=== PATIENT | female | born 1995 | race Caucasian/White ===

== ENCOUNTER 2018-05-03 14:05 | Emergency (ER) | payer MEDICAID ==
[~2018-05-03] VITALS: Ht 154.9 cm; Wt 63.5 kg
[2018-05-03] MEDS ORDERED: SODIUM CHLORIDE 0.9% 1,000 ML IV ONE (14:25)
[2018-05-03] MEDS ORDERED: ONDANSETRON HCL 4 MG/2 ML VIAL IV ONE (14:30)
[2018-05-03] MEDS ORDERED: MORPHINE SULFATE 4 MG/ML SYR/VIAL IV ONE (14:30)
[2018-05-03 14:45] LABS: Basophils # (auto) 0 uL; Basophils % (auto) 0.5 % (0.0-2.0); Eosinophils # (auto) 0.1 uL; Eosinophils % (auto) 1.5 % (0.0-7.0); Hemoglobin 13.7 g/dL (12.2-16.2); Lymphocytes # (auto) 1.6 uL; Lymphocytes % (auto) 26.1 % (10.0-50.0); Mean Corpuscular Hemoglobin 27.8 pg (28.0-32.0); Mean Corpuscular Hgb Conc. 32.6 g/dL (32.0-36.0); Mean Corpuscular Volume 85.1 fL (80.0-100.0); Monocytes # (auto) 0.4 uL; Monocytes % (auto) 6.6 % (0.0-12.0); Neutrophils # (auto) 3.9 uL; Neutrophils % (auto) 65.3 % (37.0-80.0); Nucleated Red Blood Cells % 0.1 %; Platelet Count (auto) 191 10^3/uL (140-450); Red Blood Cells 4.94 10^6/uL (4.0-5.20); Red Cell Distribution Width 13.3 % (11.8-14.3)
[2018-05-03 14:59] LABS: Calcium 8.7 mg/dL (8.5-10.1); Magnesium 2.2 mg/dL (1.6-2.6); Potassium 3.7 mmol/L (3.5-5.1)
[2018-05-03 15:03] LABS: Bilirubin, Total 0.3 mg/dL (0.2-1.0); Total Protein 7.7 g/dL (6.4-8.2)
[2018-05-03 17:30] VITALS: BP 109/63
== END 2018-05-03 19:13 | disposition home or self-care (01) ==
LOC: ER 14:05
DX: K80.80 Other cholelithiasis without obstruction (principal); Z88.8 Allergy status to other drugs, medicaments and biological substances; Z88.5 Allergy status to narcotic agent; Z90.49 Acquired absence of other specified parts of digestive tract
CPT/HCPCS: 36415; 76705; 80053; 82150; 83690; 83735; 85025; 96374; 99284; J2270; J2405; J7030

== ENCOUNTER 2019-12-29 15:09 | Emergency (ER) | payer MEDICAID ==
[~2019-12-29] VITALS: Ht 152.4 cm; Wt 60.3 kg
[2019-12-29 16:38] LABS: Urine Bacteria MOD /hpf (None Seen); Urine Blood 3+ /uL (Negative); Urine Mucus FEW (None Seen); Urine WBC 2512 /hpf (0 - 5)
[2019-12-29 16:47] LABS: Urine Specific Gravity 1.032 (1.001-1.035)
[2019-12-29 22:08] VITALS: BP 108/78
== END 2019-12-29 22:11 | disposition home or self-care (01) ==
LOC: ER 15:09
DX: O23.42 Unspecified infection of urinary tract in pregnancy, second trimester (principal); Z90.49 Acquired absence of other specified parts of digestive tract; Z3A.15 15 weeks gestation of pregnancy
CPT/HCPCS: 36415; 76805; 81001; 84702

== ENCOUNTER 2020-03-17 13:51 | Observation (INO) | payer MEDICAID ==
[~2020-03-17] VITALS: Ht 152.4 cm; Wt 64.4 kg
[2020-03-17] MEDS ORDERED: PREN-96 PO (14:13)
[2020-03-17] MEDS ORDERED: TERBUTALINE SULFATE 1 MG/ML 1ML VIAL SC SCH (14:30)
== END 2020-03-17 15:30 | disposition home or self-care (01) ==
LOC: LDRP 13:51
PROVIDERS: ADMIT Obstetrics & Gynecology; ATTEND Obstetrics & Gynecology
DX: O62.9 Abnormality of forces of labor, unspecified (principal); Z3A.25 25 weeks gestation of pregnancy
CPT/HCPCS: 59025; 76805; 81002; 96372; G0378; J3105

== ENCOUNTER 2020-04-30 10:25 | Observation (INO) | payer MEDICAID ==
[~2020-04-30 10:25] MED LIST: PREN-96 PO
[2020-04-30] MEDS ORDERED: CITALOPRAM HYDROBR 20 MG TAB PO ONE (14:00)
[2020-04-30] MEDS ORDERED: CITA-30 PO (14:19)
== END 2020-04-30 15:41 | disposition home or self-care (01) ==
LOC: LDRP 10:25
PROVIDERS: ADMIT Obstetrics & Gynecology; ATTEND Obstetrics & Gynecology
DX: O24.419 Gestational diabetes mellitus in pregnancy, unspecified control (principal); O26.893 Other specified pregnancy related conditions, third trimester; K50.90 Crohn's disease, unspecified, without complications; R45.851 Suicidal ideations; R51.9 Headache, unspecified; H53.8 Other visual disturbances; O62.9 Abnormality of forces of labor, unspecified; Z3A.31 31 weeks gestation of pregnancy
CPT/HCPCS: 59025; 76818; 81002; 82962; G0378

== ENCOUNTER 2020-05-04 10:55 | Observation (INO) | payer MEDICAID ==
[~2020-05-04] VITALS: Ht 152.4 cm; Wt 66.7 kg
[~2020-05-04 10:55] MED LIST changes: +CITA-30 PO
[2020-05-04] MEDS ORDERED: TERBUTALINE SULFATE 1 MG/ML 1ML VIAL SC ONE (11:25)
[2020-05-04] MEDS ORDERED: LACTATED RINGER'S 1,000 ML IV ONE (11:30)
[2020-05-04] MEDS: TERBUTALINE SULFATE 1 MG/ML 1ML VIAL SC SCH ×2 (11:51→12:11)
[2020-05-04] MEDS ORDERED: BETAMETHASONE ACET (6MG/ML) 5ML VIAL IM SCH (13:15)
[2020-05-04 13:39] LABS: Basophils # (auto) 0 10 ^3/uL (0-0.2); Basophils % (auto) 0.1 % (0.0-2.0); Eosinophils # (auto) 0 10 ^3/uL (0-0.8); Eosinophils % (auto) 0.2 % (0.0-7.0); Hematocrit 31.5 % (36.0-46.0); Hemoglobin 10.6 g/dL (12.2-16.2); Lymphocytes # (auto) 0.7 10 ^3/uL (0.4-5.4); Lymphocytes % (auto) 10.9 % (10.0-50.0); Mean Corpuscular Hemoglobin 28.6 pg (28.0-32.0); Mean Corpuscular Hgb Conc. 33.7 g/dL (32.0-36.0); Mean Corpuscular Volume 84.9 fL (80.0-100.0); Monocytes # (auto) 0.4 10 ^3/uL (0-1.3); Monocytes % (auto) 6.6 % (0.0-12.0); Neutrophils # (auto) 5.3 10 ^3/uL (1.6-8.6); Neutrophils % (auto) 82.2 % (37.0-80.0); Nucleated Red Blood Cells % 0.1 %; Platelet Count (auto) 145 10^3/uL (140-450); Red Blood Cells 3.71 10^6/uL (4.0-5.20); Red Cell Distribution Width 12.9 % (11.8-14.3); White Blood Cell 6.5 10^3/uL (4.4-10.8)
[2020-05-04 13:56] LABS: Albumin 2.6 g/dL (3.4-5.0); Calcium 7.7 mg/dL (8.5-10.1)
[2020-05-04 13:59] LABS: BUN/Creatinine Ratio 6.6; Bilirubin, Total 0.3 mg/dL (0.2-1.0); Total Protein 6.3 g/dL (6.4-8.2)
[2020-05-04 14:06] LABS: Potassium 2.7 mmol/L (3.5-5.1)
[2020-05-04] MEDS ORDERED: POTASSIUM CHL 20 Meq TABLET PO ONE (14:15)
[2020-05-04 15:24] LABS: Alcohol, Urine < 3.0 mg/dL (0-10); Amphetamine Screen, Urine NEGATIVE (NEGATIVE); Barbiturate Scree,Urine NEGATIVE (NEGATIVE); Benzodiazephine Screen, Urine NEGATIVE (NEGATIVE); Cannabinoid Screen, Urine NEGATIVE (NEGATIVE); Cocaine Screen, Urine NEGATIVE (NEGATIVE); Opiate Scree,Urine NEGATIVE (NEGATIVE); Phencyclidine Screen, Urine NEGATIVE (NEGATIVE)
[2020-05-05] MEDS ORDERED: NIF10C GT ×2 (13:40)
== END 2020-05-04 14:30 | disposition home or self-care (01) ==
LOC: LDRP 10:55
PROVIDERS: ADMIT Obstetrics & Gynecology; ATTEND Obstetrics & Gynecology
DX: O60.03 Preterm labor without delivery, third trimester (principal); O24.419 Gestational diabetes mellitus in pregnancy, unspecified control; O26.893 Other specified pregnancy related conditions, third trimester; N89.8 Other specified noninflammatory disorders of vagina; Z3A.32 32 weeks gestation of pregnancy; Z79.899 Other long term (current) drug therapy
CPT/HCPCS: 36415; 59025; 76805; 76817; 80053; 80307; 81002; 82962; 85025; 96360; 96372; G0378; J0702; J3105

== ENCOUNTER 2020-05-05 12:22 | Observation (INO) | payer MEDICAID ==
[~2020-05-05] VITALS: Ht 152.4 cm; Wt 66.7 kg
[2020-05-05] MEDS ORDERED: BETAMETHASONE ACET (6MG/ML) 5ML VIAL IM ONE (12:45)
[2020-05-05] MEDS ORDERED: POTASSIUM CHL 20 Meq TABLET PO ONE (12:45)
[2020-05-05] MEDS ORDERED: NIF10C GT ×2 (13:40)
== END 2020-05-05 14:02 | disposition home or self-care (01) ==
LOC: LDRP 12:22
PROVIDERS: ADMIT Specialist; ATTEND Specialist
DX: O60.03 Preterm labor without delivery, third trimester (principal); O24.419 Gestational diabetes mellitus in pregnancy, unspecified control; O26.893 Other specified pregnancy related conditions, third trimester; E87.6 Hypokalemia; O26.853 Spotting complicating pregnancy, third trimester; Z3A.32 32 weeks gestation of pregnancy
CPT/HCPCS: 36415; 59025; 81002; 82948; 82962; 84132; 96372; G0378; J0702

== ENCOUNTER 2020-06-07 20:50 | Inpatient (IN) | payer MEDICAID ==
[~2020-06-07] VITALS: Ht 152.4 cm; Wt 68.0 kg
[~2020-06-07 20:50] MED LIST changes: -CITA-30 PO; +CITA20TA9 PO; +NIF10C GT
[2020-06-07] MEDS ORDERED: LACTATED RINGER'S 1,000 ML IV SCH (22:15)
[2020-06-07] MEDS ORDERED: BUTORPHANOL TARTRATE 2 MG/1 ML VIAL IM ONE (22:15)
[2020-06-07 22:23] LABS: Urine Bacteria MOD /hpf (None Seen); Urine Blood Negative /uL (Negative); Urine Specific Gravity 1.012 (1.001-1.035); Urine WBC 6 /hpf (0 - 5)
[2020-06-07 22:39] LABS: Alcohol, Urine < 3.0 mg/dL (0-10); Amphetamine Screen, Urine NEGATIVE (NEGATIVE); Benzodiazephine Screen, Urine NEGATIVE (NEGATIVE); Cannabinoid Screen, Urine NEGATIVE (NEGATIVE); Cocaine Screen, Urine NEGATIVE (NEGATIVE); Opiate Scree,Urine NEGATIVE (NEGATIVE); Phencyclidine Screen, Urine NEGATIVE (NEGATIVE)
[2020-06-07 22:43] LABS: Barbiturate Scree,Urine NEGATIVE (NEGATIVE)
[2020-06-07] MEDS ORDERED: TERBUTALINE SULFATE 1 MG/ML 1ML VIAL SC SCH (23:20)
[2020-06-07] MEDS ORDERED: TERBUTALINE SULFATE 1 MG/ML 1ML VIAL SC ONE (23:22)
[2020-06-07] MEDS ORDERED: ceFAZolin 1GM/50ML 50 ML IV ONE (23:30)
[2020-06-07] MEDS ORDERED: LACTATED RINGER'S 1,000 ML IV ONE (23:30)
[2020-06-07] MEDS ORDERED: SODIUM CITR/CITRIC ACID ORAL SOLN 30 ML PO ONE (23:30)
[2020-06-07 23:58] LABS: Basophils # (auto) 0 10 ^3/uL (0-0.2); Basophils % (auto) 0.3 % (0.0-2.0); Eosinophils # (auto) 0 10 ^3/uL (0-0.8); Eosinophils % (auto) 0.4 % (0.0-7.0); Lymphocytes # (auto) 1.9 10 ^3/uL (0.4-5.4); Lymphocytes % (auto) 24.6 % (10.0-50.0); Mean Corpuscular Hemoglobin 27.7 pg (28.0-32.0); Mean Corpuscular Hgb Conc. 33.5 g/dL (32.0-36.0); Mean Corpuscular Volume 82.7 fL (80.0-100.0); Monocytes # (auto) 0.4 10 ^3/uL (0-1.3); Monocytes % (auto) 5.6 % (0.0-12.0); Neutrophils # (auto) 5.2 10 ^3/uL (1.6-8.6); Neutrophils % (auto) 69.1 % (37.0-80.0); Platelet Count (auto) 167 10^3/uL (140-450); Red Blood Cells 3.99 10^6/uL (4.0-5.20); Red Cell Distribution Width 14.2 % (11.8-14.3); White Blood Cell 7.5 10^3/uL (4.4-10.8)
[2020-06-08] VITALS (12 sets, daily range): BP systolic 90–125; BP diastolic 49–77
[2020-06-08] MEDS ORDERED: TETRACAINE 1% INJ 2 ML VIAL IJ ONE (00:11)
[2020-06-08] MEDS ORDERED: fentaNYL CITRATE 100 MCG/2 ML VL ONE (00:14)
[2020-06-08] MEDS ORDERED: MIDAZOLAM HCL 1MG/1ML-2 ML VIAL ONE (00:14)
[2020-06-08] MEDS ORDERED: MEPERIDINE HCL (25 MG/ML) 1ML VIAL ONE (00:14)
[2020-06-08] MEDS ORDERED: ROCURONIUM 10MG/ML 10ML VIAL IV ONE (00:15)
[2020-06-08] MEDS ORDERED: SODIUM CHLORIDE LOCK 10 ML ONE (00:15)
[2020-06-08 00:16] LABS: INR 0.97 (0.9-1.15); Partial Thromboplastin Time 25.1 sec (23.0-31.2)
[2020-06-08 00:25] LABS: Albumin 2.8 g/dL (3.4-5.0); BUN/Creatinine Ratio 10.2; Calcium 8.2 mg/dL (8.5-10.1); Potassium 3.3 mmol/L (3.5-5.1)
[2020-06-08] MEDS ORDERED: oxyTOCIN 10 UNIT/ML 10ML VIAL ONE (00:26)
[2020-06-08] MEDS ORDERED: GLYCOPYRROLATE 0.2 MG/ML 1ML VIAL ONE (00:28)
[2020-06-08] MEDS ORDERED: NEOSTIGMINE 1 MG/ML INJ (10mg/10ML VIAL) ONE (00:28)
[2020-06-08 00:29] LABS: Bilirubin, Total 0.4 mg/dL (0.2-1.0); Total Protein 6.6 g/dL (6.4-8.2)
[2020-06-08] MEDS ORDERED: ONDANSETRON HCL 4 MG/2 ML VIAL ONE (00:51)
[2020-06-08] MEDS ORDERED: ACETAMINOPHEN IV 1000 MG/100ML (10MG/ML) IV PRN (01:30)
[2020-06-08] MEDS ORDERED: ONDANSETRON HCL 4 MG/2 ML VIAL IV PRN ×2 (01:30→01:45)
[2020-06-08] MEDS ORDERED: GUM (CHEWING) 1 GUM CHEW CHEW ONE (01:30)
[2020-06-08] MEDS: HYDROmorphone HCL 2 MG/ML VL ONE ×2 (01:35→01:45)
[2020-06-08] MEDS ORDERED: HYDROmorphone HCL 2 MG/ML VL IV PRN (01:45)
[2020-06-08] MEDS: KETOROLAC TROMETH 30 MG/ML 1ML VIAL IV PRN ×3 (03:04→16:09)
[2020-06-08] MEDS: LACTATED RINGER'S 1,000 ML IV SCH ×4 (04:40→23:17)
[2020-06-08] MEDS ORDERED: INFLUENZA QUAD 2020-2021 0.5 ML SYRG IM ONE (05:30)
[2020-06-08] MEDS: HYDROmorphone HCL 2 MG/ML VL IV PRN ×4 (06:18→22:15)
[2020-06-08] MEDS: ceFAZolin 1GM/50ML 50 ML IV SCH ×2 (08:33→16:09)
[2020-06-08] MEDS: CITALOPRAM HYDROBR 20 MG TAB PO SCH (10:01)
[2020-06-08] MEDS ORDERED: POTASSIUM CHL 20 Meq TABLET PO ONE (16:00)
[2020-06-09] MEDS: ceFAZolin 1GM/50ML 50 ML IV SCH (00:21)
[2020-06-09] MEDS: HYDROmorphone HCL 2 MG/ML VL IV PRN (02:27)
[2020-06-09 02:53] VITALS: BP 98/58
[2020-06-09 06:06] LABS: RPR Non Reactive (Non Reactive)
[2020-06-09 07:20] VITALS: BP 86/48
[2020-06-09] MEDS ORDERED: HYDROcodone-ACET 5/325MG TAB PO PRN (07:45)
[2020-06-09] MEDS: HYDROcodone-ACET 5/325MG TAB PO PRN ×2 (08:06→18:52)
[2020-06-09] MEDS: DOCUSATE SOD 100 MG CAP PO SCH ×2 (08:07→21:45)
[2020-06-09] MEDS: SIMETHICONE 80 MG CHEWABLE TABLET PO PRN ×3 (08:07→21:45)
[2020-06-09 11:15] VITALS: BP 98/59
[2020-06-09 11:44] LABS: Basophils # (auto) 0 10 ^3/uL (0-0.2); Basophils % (auto) 0.2 % (0.0-2.0); Eosinophils # (auto) 0 10 ^3/uL (0-0.8); Eosinophils % (auto) 0.4 % (0.0-7.0); Hematocrit 27.6 % (36.0-46.0); Hemoglobin 9.1 g/dL (12.2-16.2); Lymphocytes # (auto) 1.7 10 ^3/uL (0.4-5.4); Lymphocytes % (auto) 22.1 % (10.0-50.0); Mean Corpuscular Hemoglobin 27.4 pg (28.0-32.0); Mean Corpuscular Hgb Conc. 33.1 g/dL (32.0-36.0); Mean Corpuscular Volume 82.8 fL (80.0-100.0); Monocytes # (auto) 0.7 10 ^3/uL (0-1.3); Monocytes % (auto) 8.6 % (0.0-12.0); Neutrophils # (auto) 5.2 10 ^3/uL (1.6-8.6); Neutrophils % (auto) 68.7 % (37.0-80.0); Nucleated Red Blood Cells % 0.1 %; Platelet Count (auto) 170 10^3/uL (140-450); Red Blood Cells 3.33 10^6/uL (4.0-5.20); Red Cell Distribution Width 14.1 % (11.8-14.3); White Blood Cell 7.6 10^3/uL (4.4-10.8)
[2020-06-09] MEDS: CITALOPRAM HYDROBR 20 MG TAB PO SCH (12:16)
[2020-06-09 12:21] LABS: Potassium 3.6 mmol/L (3.5-5.1)
[2020-06-09 12:41] LABS: BUN/Creatinine Ratio 13.9; Bilirubin, Total 0.2 mg/dL (0.2-1.0); Calcium 7.9 mg/dL (8.5-10.1); Total Protein 5.2 g/dL (6.4-8.2)
[2020-06-09 19:00] VITALS: BP 105/62
[2020-06-09] MEDS: LACTATED RINGER'S 1,000 ML IV SCH (19:53)
[2020-06-09 23:00] VITALS: BP 91/43
[2020-06-10] MEDS: HYDROcodone-ACET 5/325MG TAB PO PRN ×5 (01:28→22:11)
[2020-06-10] MEDS: LACTATED RINGER'S 1,000 ML IV SCH ×3 (01:30→17:16)
[2020-06-10 03:00] VITALS: BP 102/51
[2020-06-10] MEDS ORDERED: BISACODYL 10 MG RECT SUPP PR ONE (03:15)
[2020-06-10 07:30] VITALS: BP 92/51
[2020-06-10] MEDS: DOCUSATE SOD 100 MG CAP PO SCH ×2 (10:23→22:10)
[2020-06-10] MEDS: CITALOPRAM HYDROBR 20 MG TAB PO SCH (10:23)
[2020-06-10 11:30] VITALS: BP 92/55
[2020-06-10] MEDS ORDERED: TETANUS-DIPTH-ACEL PERTUSSIS 0.5ML SYR Tdap IM ONE (15:00)
[2020-06-10 15:15] VITALS: BP 95/62
[2020-06-10] MEDS ORDERED: INFLUENZA QUAD 2020-2021 0.5 ML SYRG IM ONE (17:44)
[2020-06-10 19:30] VITALS: BP 105/63
[2020-06-10 22:43] VITALS: BP 104/64
[2020-06-11 03:00] VITALS: BP 109/64
[2020-06-11] MEDS: HYDROcodone-ACET 5/325MG TAB PO PRN ×3 (03:06→11:37)
[2020-06-11 07:00] VITALS: BP 106/63
[2020-06-11] MEDS: CITALOPRAM HYDROBR 20 MG TAB PO SCH (10:01)
[2020-06-11] MEDS: DOCUSATE SOD 100 MG CAP PO SCH (10:01)
[2020-06-11] MEDS ORDERED: IBUP600T27 PO (10:32)
[2020-06-11] MEDS ORDERED: DOCU-94 PO (10:32)
[2020-06-11 10:49] VITALS: BP 115/61
[2020-06-11] MEDS ORDERED: HYDR1TAB97 PO (11:37)
== END 2020-06-11 13:15 | disposition home or self-care (01) | DRG 540 ==
LOC: LDRP 20:50 → OBSVTOIN 23:19 → LDRP 06-08 00:43
PROVIDERS: ADMIT Obstetrics & Gynecology; ATTEND Obstetrics & Gynecology
PROC: 10D00Z1 Extraction of Products of Conception, Low, Open Approach (ICD-10-PCS; principal; 2020-06-08 00:28)
DX: O32.1XX0 Maternal care for breech presentation, not applicable or unspecified (principal); O24.420 Gestational diabetes mellitus in childbirth, diet controlled; Z20.822 Contact with and (suspected) exposure to COVID-19; Z37.0 Single live birth; Z3A.37 37 weeks gestation of pregnancy; Z88.5 Allergy status to narcotic agent; Z91.19 Patient's noncompliance with other medical treatment and regimen
CPT/HCPCS: 36415; 59025; 76815; 80053; 80307; 81001; 81002; 85025; 85610; 85730; 86592; 86850; 86870; 86900; 86901; 87426; 90715; 94760; 96360; 96361; 96365; 96372; 96374; G0378; J0131; J0690; J1885; J2250; J2405; J2590